=== PATIENT | male | born 1960 | race Caucasian/White ===

== ENCOUNTER 2017-04-23 19:41 | Emergency (ER) | payer OTHER ==
[~2017-04-23] VITALS: Ht 177.8 cm; Wt 84.6 kg
[2017-04-23 21:05] LABS: HEMATOCRIT 41.9 % (38.0-50.0); MCH 31.3 PG (29.0-34.0); MCHC 34.4 G/DL (30.0-36.0); MCV 91.1 FL (86-99); MEAN PLAT.VOLUME 10.2 uM^3 (9.0-12.4); PLATELET COUNT 226 K/uL (156-360); RBC DIS.WIDTH-CV 12.9 % (11.8-14.6); RBC DIS.WIDTH-SD 42.9 % (39-53); WHITE BLOOD COUNT 10.3 K/uL (4.1-10.2)
[2017-04-23 21:12] LABS: CHLORIDE 109 mEq/L (99-109); MAGNESIUM 2.3 mg/dL (1.3-2.7); POTASSIUM 3.4 mEq/L (3.7-5.4); SODIUM 142 mEq/L (136-147)
[2017-04-23 21:13] LABS: GLUCOSE 102 mg/dL (70-99)
[2017-04-23 21:15] LABS: ANION GAP 12 MEQ/L (2-14)
[2017-04-23 21:17] LABS: GFR ESTIMATE (CALCULATED) > 59 mL/min/
[2017-04-23 21:18] LABS: UREA NITROGEN (BUN) 12 mg/dL (9-23)
[2017-04-23 21:58] VITALS: BP 136/81
== END 2017-04-23 22:00 | disposition home or self-care (01) ==
LOC: EME 19:41
PROVIDERS: Physician Assistant
DX: M79.604 Pain in right leg (principal); M79.605 Pain in left leg; G62.9 Polyneuropathy, unspecified; R25.3 Fasciculation
CPT/HCPCS: 80048; 83735; 85027; 99281; 99284